=== PATIENT | female | born 1985 | race American Indian/Alaskan Native ===

== ENCOUNTER 2018-06-07 06:52 | Emergency (ER) | payer SELFPAY ==
[2018-06-07 07:10] VITALS: BP 124/68
--- NOTE | 2018-06-07 07:58 | Emergency Department Report ---
ED ENT HPI - General Chief complaint: Earache Stated complaint: SOMETHING IN EAR Source: patient Mode of arrival: Ambulatory Limitations: No Limitations - History of Present Illness Initial comments: This is a 32-year-old -[place] female who presents with left ear pain since this morning. Patient states she felt a call into her ear and can't feel it move around. She reports pain is 10 out of 10 on pain scale. It is a constant achy sensation. MD complaint: ear pain (left ear) Onset/Timin -: hour(s), This morning Time: 06:20 Location: L ear Severity: moderate Severity scale (0 -10): 10 Quality: aching, constant Consistency: constant Improves with: none Worsens with: none Associated Symptoms: denies: fever, cough, gum swelling, toothache, pain with swallowing, sore throat, tinnitus, hearing loss, discharge from ear, rhinorrhea - Related Data Previous Rx's Medication Instructions Recorded Last Taken Type Naproxen [Naprosyn] 500 mg PO BID #20 tablet 05/18/18 Unknown Rx Promethazine [Phenergan TAB] 25 mg PO Q6HR PRN #20 tab 05/18/18 Unknown Rx traMADol [Ultram] 50 mg PO Q6HR PRN #7 tablet 05/18/18 Unknown Rx Neomy/Polymyx B/Hc (Otic) Soln 4 drops TID 7 Days #1 bottle 06/07/18 Unknown Rx [Cortisporin (Otic) Soln] Allergies Allergy/AdvReac Type Severity Reaction Status Date / Time No Known Allergies Allergy Verified 05/17/18 23:00 ED Dental HPI - General Chief complaint: Earache Stated complaint: SOMETHING IN EAR Source: patient Mode of arrival: Ambulatory Limitations: No Limitations - Related Data Previous Rx's Medication Instructions Recorded Last Taken Type Naproxen [Naprosyn] 500 mg PO BID #20 tablet 05/18/18 Unknown Rx Promethazine [Phenergan TAB] 25 mg PO Q6HR PRN #20 tab 05/18/18 Unknown Rx traMADol [Ultram] 50 mg PO Q6HR PRN #7 tablet 05/18/18 Unknown Rx Neomy/Polymyx B/Hc (Otic) Soln 4 drops TID 7 Days #1 bottle 06/07/18 Unknown Rx [Cortisporin (Otic) Soln] Allergies Allergy/AdvReac Type Severity Reaction Status Date / Time No Known Allergies Allergy Verified 05/17/18 23:00 ED Review of Systems ROS: Stated complaint: SOMETHING IN EAR Other details as noted in HPI Constitutional: denies: chills, fever ENT: ear pain (left ear). denies: throat pain Respiratory: denies: cough, shortness of breath, wheezing Cardiovascular: denies: chest pain, palpitations Gastrointestinal: denies: abdominal pain, nausea, diarrhea Neurological: denies: headache, weakness, paresthesias ED Past Medical Hx - Past Medical History Previous Medical History?: No - Surgical History Past Surgical History?: No - Social History Smoking Status: Never Smoker Substance Use Type: None - Medications Home Medications: Home Medications Medication Instructions Recorded Confirmed Last Taken Type Naproxen [Naprosyn] 500 mg PO BID #20 tablet 05/18/18 Unknown Rx Promethazine [Phenergan TAB] 25 mg PO Q6HR PRN #20 tab 05/18/18 Unknown Rx traMADol [Ultram] 50 mg PO Q6HR PRN #7 tablet 05/18/18 Unknown Rx Neomy/Polymyx B/Hc (Otic) Soln 4 drops TID 7 Days #1 bottle 06/07/18 Unknown Rx [Cortisporin (Otic) Soln] ED Physical Exam - General Limitations: No Limitations General appearance: alert, in no apparent distress - ENT ENT exam: Present: mucous membranes moist. Absent: normal external ear exam (left ear foreign object, insect) - Respiratory Respiratory exam: Present: normal lung sounds bilaterally. Absent: respiratory distress - Cardiovascular Cardiovascular Exam: Present: regular rate, normal rhythm. Absent: systolic murmur, diastolic murmur, rubs, gallop - GI/Abdominal GI/Abdominal exam: Present: soft, normal bowel sounds - Neurological Exam Neurological exam: Present: alert, oriented X3 - Psychiatric Psychiatric exam: Present: normal affect, normal mood - Skin Skin exam: Present: warm, dry, intact, normal color. Absent: rash ED Course Vital Signs 06/07/18 07:07 Temperature 98.0 F Pulse Rate 97 H Respiratory 17 Rate Blood Pressure 124/68 O2 Sat by Pulse 99 Oximetry ED Medical Decision Making - Medical Decision Making Patient was examined by me. Vitals are normal and patient is in no acute distress. On focal exam a foreign object, corona visualized in left ear canal. Lidocaine 1 mL placed, irrigated left ear with docusate sodium and normal saline. The insect was removed with allegator forceps. There is some erythema to ear canal. Start for pain. Plan discussed with patient to discharge home and treat outpatient. He agrees wi ER plan. Patient discharged home in stable condition. Follow up with PCP in 2-3 days. Critical care attestation.: If time is entered above; I have spent that time in minutes in the direct care of this critically ill patient, excluding procedure time. ED Disposition Clinical Impression: Otalgia of left ear Foreign body in ear Qualifiers: Encounter type: initial encounter Laterality: left Qualified Code(s): T16.2XXA - Foreign body in left ear, initial encounter Disposition: TO HOME OR SELFCARE Is pt being admited?: No Does the pt Need Aspirin: No Condition: Stable Instructions: Ear Foreign Body (ED) Additional Instructions: Complete full course of ear drops as directed. Return to emergency room if pain increase, drainage, or change in hearing. Prescriptions: Neomy/Polymyx B/Hc (Otic) Soln [Cortisporin (Otic) Soln] 4 drops TID 7 Days #1 bottle Referrals[facility] [Outside] - 3-5 Days [facility] [Outside] - 3-5 Days [facility] [Outside] - 3-5 Days Forms: Work/School Release Form(ED) Time of Disposition: 09:31
[2018-06-07] MEDS ORDERED: XYLOCAINE 1% MPF 5 mL INFILTRATI ONE (08:02)
[2018-06-07] MEDS ORDERED: COLACE PO ONE (08:46)
[2018-06-07] MEDS ORDERED: COLACE ONE (08:50)
== END 2018-06-07 09:44 | disposition home or self-care (01) ==
LOC: ED 06:52
DX: T16.2XXA Foreign body in left ear, initial encounter (principal); H92.02 Otalgia, left ear; Y92.89 Other specified places as the place of occurrence of the external cause
CPT/HCPCS: 99282

== ENCOUNTER 2018-10-12 15:17 | Emergency (ER) | payer OTHER ==
--- NOTE | 2018-10-12 15:25 | Emergency Department Report ---
Blank Doc - Documentation Documentation: 32 y/o female with left arm tingling for 1 week. Denies any injury. No chest pain. Admits to cough.
[2018-10-12] MEDS ORDERED: FLEXERIL PO ONE (17:19)
[2018-10-12] MEDS ORDERED: IBUPROFEN PO ONE (17:19)
--- NOTE | 2018-10-12 17:24 | Emergency Department Report ---
HPI - General Chief Complaint: Extremity Problem,Nontraumatic Time Seen by Provider: 10/12/18 16:54 - HPI HPI: This is a 32-year-old female presents to ED complaining of tingling feeling like pins and needle to her left hand fingers for the past week. Patient states a filling is state the same and intermittent for the past week. Patient denies any past medical history of diabetes or hypertension. Patient denies fever, chest pain, shortness of breath, headache, nausea vomiting or diarrhea, abdominal pain or any other problems. Patient states that she feels tingly sensation in her fingers and hand intermittently throughout the day. ED Past Medical Hx - Past Medical History Previous Medical History?: No - Surgical History Past Surgical History?: No - Social History Smoking Status: Never Smoker Substance Use Type: None - Medications Home Medications: Home Medications Medication Instructions Recorded Confirmed Last Taken Type Naproxen [Naprosyn] 500 mg PO BID #20 tablet 05/18/18 Unknown Rx Promethazine [Phenergan TAB] 25 mg PO Q6HR PRN #20 tab 05/18/18 Unknown Rx traMADol [Ultram] 50 mg PO Q6HR PRN #7 tablet 05/18/18 Unknown Rx Neomy/Polymyx B/Hc (Otic) Soln 4 drops TID 7 Days #1 bottle 06/07/18 Unknown Rx [Cortisporin (Otic) Soln] Cyclobenzaprine [Flexeril 10 MG 10 mg PO QHS #15 tablet 10/12/18 Unknown Rx TAB] Ibuprofen [Motrin 800 MG tab] 800 mg PO TID #20 tablet 10/12/18 Unknown Rx ED Review of Systems ROS: Stated complaint: L SIDE NUMBNESS/ARM/HAND Other details as noted in HPI Comment: All other systems reviewed and negative Physical Exam - Physical Exam Vital Signs: Vital Signs 10/12/18 15:24 Temperature 98.4 F Pulse Rate 73 Respiratory 16 Rate Blood Pressure 140/56 O2 Sat by Pulse 100 Oximetry Physical Exam: GENERAL: Alert and oriented x3, no apparent distress, Normal Gait, atraumatic. HEAD: Head is normocephalic and a-traumatic. EYES: Extra ocular muscles are intact. Pupils are equal, round, and reactive to light and accommodation. NECK: Supple. Non edematous, No carotid bruits. No lymphadenopathy or thyromegaly. No C-spine tenderness EXTREMITIES/MUSCULOSKELETAL: No cyanosis, clubbing, rash, lesions or edema. Full ROM bilaterally in all upper extremities. UE/LE Pulses 2+ bilaterally. LE and UE 5+ strength bilaterally, NEUROLOGIC: The patient is cooperative with no focal neurologic deficits. Cranial nerves II through XII are grossly intact. Normal speech. Normal sensation in bilateral upper and lower extremities, No loss of sensation, . SKIN: Warm and dry, No lesions, No ulceration or induration present. ED Course Vital Signs 10/12/18 15:24 Temperature 98.4 F Pulse Rate 73 Respiratory 16 Rate Blood Pressure 140/56 O2 Sat by Pulse 100 Oximetry ED Medical Decision Making - Medical Decision Making 32-year-old female presents with neuropathy of the left hand. Patient received Motrin and Flexeril ED. Discussed with patient the need to follow up with the neurologist R have a primary care physician refer her to a neurologist. Assessment the patient to follow up with primary care physician for diabetic screening Patient is in no acute distress patient has full range of motion in shoulder with ease and no loss of sensation. Vital signs are normal she has no neurological deficit. Critical care attestation.: If time is entered above; I have spent that time in minutes in the direct care of this critically ill patient, excluding procedure time. ED Disposition Clinical Impression: Neuropathy, peripheral, Neuropathy of finger of left hand Disposition: - TO HOME OR SELFCARE Is pt being admited?: No Does the pt Need Aspirin: No Condition: Stable Instructions: Peripheral Neuropathy (ED), Diabetic Neuropathy (ED), Paresthesia (ED) Additional Instructions: Make sure to follow up with the primary care physician as discussed. Take all your medications as you've been prescribed. If you have any worsening symptoms or develop new symptoms please return to ED immediately. Prescriptions: Cyclobenzaprine [Flexeril 10 MG TAB] 10 mg PO QHS #15 tablet Ibuprofen [Motrin 800 MG tab] 800 mg PO TID #20 tablet Referrals: ANGELES AMBROCIO MD [Staff Physician] - 3-5 Days TISH OSBORNE MD [Staff Physician] - 3-5 Days Forms: Accompanied Note, Work/School Release Form(ED) Time of Disposition: 17:24
[2018-10-12 18:46] VITALS: BP 132/93
== END 2018-10-12 17:00 | disposition home or self-care (01) ==
LOC: ED 15:17
DX: G62.9 Polyneuropathy, unspecified (principal)
CPT/HCPCS: 82962; 99283

== ENCOUNTER 2021-08-30 11:30 | Emergency (ER) | payer SELFPAY ==
--- NOTE | 2021-08-30 14:03 | Emergency Department Report ---
ED Extremity Problem HPI - General Chief complaint: Extremity Problem,Nontraumatic Stated complaint: SWOLLEN KNEES Time Seen by Provider: 08/30/21 13:48 Source: patient Mode of arrival: Ambulatory Limitations: No Limitations - History of Present Illness Initial comments: 35-year-old black female with no past medical history presents to the emergency department for evaluation of 1 year history of intermittent left knee pain and swelling. She denies injury but states that her knee just intermittently starts hurting and swelling. She states that she has not seen anybody about the knee nor has she taken any medications. She states that pain is mild maybe 3 out of 10 but swelling is more significant than usual. She denies fever. MD Complaint: extremity pain, extremity swelling -: Gradual, year(s) (1) Location: left, knee History of Same: Yes -: No myalgia, No arthralgia, No fever, No associated dyspnea, No associated chest pain Radiation: none Severity scale (0 -10): 3 Quality: aching Consistency: intermittent Improves with: nothing Worsens with: weight bearing Associated Symptoms: denies: chest pain, shortness of breath, fever, myalgias, arthralgias, rash - Related Data Previous Rx's Medication Instructions Recorded Last Taken Type Naproxen [Naprosyn] 500 mg PO BID #20 tablet 05/18/18 Unknown Rx Promethazine [Phenergan TAB] 25 mg PO Q6HR PRN #20 tab 05/18/18 Unknown Rx traMADoL [Ultram] 50 mg PO Q6HR PRN #7 tablet 05/18/18 Unknown Rx Neomy/Polymyx B/Hc (Otic) Soln 4 drops TID 7 Days #1 bottle 06/07/18 Unknown Rx [Cortisporin (Otic) Soln] Cyclobenzaprine [Flexeril 10 MG 10 mg PO QHS #15 tablet 10/12/18 Unknown Rx TAB] Ibuprofen [Motrin 800 MG tab] 800 mg PO TID #20 tablet 10/12/18 Unknown Rx Naproxen [Naprosyn] 500 mg PO BID #14 tab 08/30/21 Unknown Rx Prednisone [predniSONE 10 mg 10 mg PO .TAPER #1 pack 08/30/21 Unknown Rx (6-Day Pack, 21 Tabs)] Allergies Allergy/AdvReac Type Severity Reaction Status Date / Time No Known Allergies Allergy Verified 08/30/21 12:53 ED Review of Systems ROS: Stated complaint: SWOLLEN KNEES Other details as noted in HPI Comment: All other systems reviewed and negative Respiratory: denies: shortness of breath Cardiovascular: denies: chest pain, palpitations, dyspnea on exertion, orthopnea, edema, syncope, paroxysmal nocturnal dyspnea Gastrointestinal: denies: nausea, vomiting Musculoskeletal: denies: back pain Skin: denies: rash, lesions Neurological: denies: headache, weakness ED Past Medical Hx - Social History Smoking Status: Never Smoker Substance Use Type: None - Medications Home Medications: Home Medications Medication Instructions Recorded Confirmed Last Taken Type Naproxen [Naprosyn] 500 mg PO BID #20 tablet 05/18/18 08/30/21 Unknown Rx Promethazine [Phenergan TAB] 25 mg PO Q6HR PRN #20 tab 05/18/18 08/30/21 Unknown Rx traMADoL [Ultram] 50 mg PO Q6HR PRN #7 tablet 05/18/18 08/30/21 Unknown Rx Neomy/Polymyx B/Hc (Otic) Soln 4 drops TID 7 Days #1 bottle 06/07/18 08/30/21 Unknown Rx [Cortisporin (Otic) Soln] Cyclobenzaprine [Flexeril 10 MG 10 mg PO QHS #15 tablet 10/12/18 08/30/21 Unknown Rx TAB] Ibuprofen [Motrin 800 MG tab] 800 mg PO TID #20 tablet 10/12/18 08/30/21 Unknown Rx Naproxen [Naprosyn] 500 mg PO BID #14 tab 08/30/21 Unknown Rx Prednisone [predniSONE 10 mg 10 mg PO .TAPER #1 pack 08/30/21 Unknown Rx (6-Day Pack, 21 Tabs)] ED Physical Exam - General Limitations: No Limitations General appearance: alert, in no apparent distress - Head Head exam: Present: atraumatic, normocephalic - Eye Eye exam: Present: normal appearance. Absent: conjunctival injection - Neck Neck exam: Present: normal inspection. Absent: tenderness, full ROM, lymphadenopathy - Respiratory Respiratory exam: Present: normal lung sounds bilaterally. Absent: respiratory distress, wheezes, rales, rhonchi, chest wall tenderness, accessory muscle use - Cardiovascular Cardiovascular Exam: Present: regular rate, normal heart sounds - GI/Abdominal GI/Abdominal exam: Present: soft, normal bowel sounds. Absent: distended, tenderness, guarding, rebound, rigid - Expanded Lower Extremity Exam Left Knee exam: Present: tenderness, swelling, effusion. Absent: normal inspection, abrasion, laceration, deformity, crepidus, dislocation, erythema Lower Leg exam: Present: normal inspection Ankle exam: Present: normal inspection Foot/Toe exam: Present: normal inspection Neuro vascular tendon exam: Present: no vascular compromise. Absent: pulse deficit, abnormal cap refill, motor deficit, sensory deficit, extremity cold to touch - Back Exam Back exam: Present: normal inspection - Neurological Exam Neurological exam: Present: alert, oriented X3 - Psychiatric Psychiatric exam: Present: normal affect, normal mood - Skin Skin exam: Present: warm, dry, intact, normal color ED Course Vital Signs 08/30/21 08/30/21 08/30/21 12:33 12:50 12:51 Temperature 98.7 F 97.8 F Pulse Rate 78 80 Respiratory 18 18 Rate Blood Pressure 149/72 Blood Pressure 125/76 [Left] O2 Sat by Pulse 100 100 99 Oximetry 08/30/21 08/30/21 12:52 14:10 Temperature 97.8 F 98.2 F Pulse Rate 80 77 Respiratory 20 20 Rate Blood Pressure 129/76 Blood Pressure 129/75 [Left] O2 Sat by Pulse 99 100 Oximetry ED Medical Decision Making - Medical Decision Making 35-year-old black female with no past medical history presents to the emergency department for evaluation of 1 year history of intermittent left knee pain and swelling. She denies injury but states that her knee just intermittently starts hurting and swelling. She states that she has not seen anybody about the knee nor has she taken any medications. She states that pain is mild maybe 3 out of 10 but swelling is more significant than usual. She denies fever. No acute abnormalities noted on exam. Patient will be treated with steroid pack and anti-inflammatories. She was advised to take medications as prescribed and follow-up with orthopedics for further evaluation and management. She verbalized understanding of and agreement with plan of care. Critical care attestation.: If time is entered above; I have spent that time in minutes in the direct care of this critically ill patient, excluding procedure time. ED Disposition Clinical Impression: Pain and swelling of left knee Disposition: HOME / SELF CARE / HOMELESS Is pt being admited?: No Does the pt Need Aspirin: No Condition: Stable Instructions: Knee Effusion, [id number], Chronic Knee Pain, Adult, [id number] Additional Instructions: Take medications as prescribed. Follow-up with orthopedics for further evaluation and management. Prescriptions: Naproxen [Naprosyn] 500 mg PO BID #14 tab Prednisone [predniSONE 10 mg (6-Day Pack, 21 Tabs)] 10 mg PO .TAPER #1 pack Referrals: GIL GRAF MD [Staff Physician] - 3-5 Days Time of Disposition: 14:03
[2021-08-30 14:10] VITALS: BP 129/75
== END 2021-08-30 14:10 | disposition home or self-care (01) ==
LOC: ED 11:30
DX: M25.562 Pain in left knee (principal); M25.462 Effusion, left knee
CPT/HCPCS: 99282